=== PATIENT | male | born 1990 | race American Indian/Alaskan Native ===

== ENCOUNTER 2016-07-20 09:46 | Emergency (ER) | payer SELFPAY ==
[2016-07-20 11:34] VITALS: BP 125/77
[2016-07-20] MEDS ORDERED: TYLENOL PO ONE (12:31)
[2016-07-20] MEDS ORDERED: BACTRIM DS PO ONE (12:32)
--- NOTE | 2016-07-20 12:38 | Emergency Department Report ---
HPI - General Chief Complaint: Skin/Abscess/Foreign Body - HPI HPI: The patient is a 26 yo male presents for evaluation of toe pain. The patient reports continuous severe toe pain for the past one week, burning in quality, 10 /10 severity, exacerbated with ambulation. The patient has some to the toes, fever, drainage or discharge, paresthesias, motor deficit. ED Past Medical Hx - Social History Smoking Status: Never Smoker Substance Use Type: None - Medications Home Medications: Home Medications Medication Instructions Recorded Confirmed Last Taken Type Clindamycin [Clindamycin CAP] 600 mg PO BID #28 capsule 12/04/14 Unknown Rx Ibuprofen [Motrin 800 MG tab] 800 mg PO Q8HR PRN #30 tablet 12/06/14 Unknown Rx Doxycycline [Vibramycin CAP] 100 mg PO Q12HR #20 capsule 04/20/15 Unknown Rx Acetaminophen/Codeine [Tylenol 1 tab PO TID PRN #14 tab 07/20/16 Unknown Rx /Codeine # 3 tab] Sulfamethoxazole/Trimethoprim 1 each PO BID #10 tablet 07/20/16 Unknown Rx [Bactrim DS TAB] Terbinafine 1% [Lamisil At] 1 applicatio TP BID #2 tube 07/20/16 Unknown Rx ED Review of Systems ROS: Stated complaint: FOOT INFECTION/PAIN Other details as noted in HPI Constitutional: denies: fever ENT: denies: throat or neck pain Respiratory: denies: cough, shortness of breath Cardiovascular: denies: chest pain Endocrine: denies unexplained weight loss or gain Gastrointestinal: denies: abdominal pain, nausea Genitourinary: denies: dysuria Musculoskeletal: reports toe pain denies: leg swelling Skin: denies: rash Neurological: denies: headache Hematological/Lymphatic: denies: easy bleeding or easy bruising Psych: denies sadness or hopelessness Physical Exam - Physical Exam Vital Signs: Vital Signs 07/20/16 11:31 Temperature 97.6 F Pulse Rate 57 L Respiratory 16 Rate Blood Pressure 125/77 O2 Sat by Pulse 100 Oximetry Physical Exam: General: well-nourished, well-developed, no acute distress Head: Normocephalic, atraumatic Eyes: normal sclera ENT: Mucous membranes are pink and moist Neck: trachea midline, neck supple, No neck stiffness, no cervical adenopathy Respiratory: Breath sounds equal bilaterally, no wheezing, rales, or rhonchi Cardio: S1 and S2 present, no murmurs, rubs, gallops, capillary refill is brisk Abdomen: Normoactive bowel sounds, soft abdomen, no rigidity, no guarding or rebound tenderness Musc: Hawkeye raise malodorous whitish lesion present in between the 3-4 toes of right foot, mild surrounding erythema present, no swelling of the toes, no paronychia, felon, or other abscess, No pitting edema Skin: No rash Neuro: no facial drooping, normal speech Psych: Normal affect ED Course Vital Signs 07/20/16 11:31 Temperature 97.6 F Pulse Rate 57 L Respiratory 16 Rate Blood Pressure 125/77 O2 Sat by Pulse 100 Oximetry ED Medical Decision Making - Medical Decision Making Evaluation findings are consistent with acute tinea pedis, and probable surrounding mild cellulitis. The patient is given a tablet of Bactrim and a tablet of Tylenol for his pain. The patient is also given a Prescription for terbinafine cream. The patient was reevaluated and reported that their symptoms were markedly improved. The patient is stable for discharge with outpatient follow-up. The patient is given follow-up and return instructions. The patient expressed understanding and agreed with the plan. The patient is discharged in stable condition. Critical care attestation.: If time is entered above; I have spent that time in minutes in the direct care of this critically ill patient, excluding procedure time. ED Disposition Clinical Impression: Tinea pedis of right foot, Pain in toe of right foot, Cellulitis of toe of right foot Disposition: DC- TO HOME OR SELFCARE Is pt being admited?: No Does the pt Need Aspirin: No Condition: Stable Instructions: Tinea Pedis (ED), Terbinafine (On the skin), Antifungals (On the skin) Prescriptions: Acetaminophen/Codeine [Tylenol /Codeine # 3 tab] 1 tab PO TID PRN #14 tab PRN Reason: Breakthrough Pain Sulfamethoxazole/Trimethoprim [Bactrim DS TAB] 1 each PO BID #10 tablet Terbinafine 1% [Lamisil At] 1 applicatio TP BID #2 tube Referrals: PRIMARY CARE,MD [Primary Care Provider] - 3-5 Days Time of Disposition: 12:34
== END 2016-07-20 13:04 | disposition home or self-care (01) ==
LOC: ED 09:46
DX: B35.3 Tinea pedis (principal); L03.115 Cellulitis of right lower limb; M79.674 Pain in right toe(s); Z88.0 Allergy status to penicillin
CPT/HCPCS: 99282

== ENCOUNTER 2016-08-09 14:24 | Emergency (ER) | payer SELFPAY ==
[2016-08-09 14:56] VITALS: BP 128/79
--- NOTE | 2016-08-09 22:23 | Emergency Department Report ---
Entered by TY CRISOSTOMO, acting as scribe for HOLLEY DAWN NP. - General Chief Complaint: Wound/Laceration Stated Complaint: RT LEG/FOOT PAIN /SWOLLEN Time Seen by Provider: 08/09/16 15:00 Source: patient Mode of arrival: Ambulatory Limitations: No Limitations - History of Present Illness Initial Comments: This is a 26 y/o male that is non-toxic, non-ill appearing, and in no acute distress with no significant PMHx with c/o a wound with drainage between his right 3rd and 4th toes that began 4 weeks ago. Rates associated pain a 9/10 in severity, which he states radiates to his right foot. Patient states he was seen in this ED on 07/20/2016 for right foot pain, and was prescribed fungal medication. Patient states he finished the medications with no improvement. He states the wound is worsening. Patient denies trauma to the area. He denies numbness, tingling, chest pain, SOB, headache, stiff neck, fever, chills, nausea , and vomiting. Denies Hx of diabetes mellitus. Allergic to penicillins. Onset/Timin -: week(s) Location: other (right foot between 3rd and 4th toes) Extremity Location: Right: Foot (between 3rd and 4th toes) Place: home Associated Symptoms: pain, other (purulent drainage from wound on right foot). denies: loss of feeling/numbness, suspect foreign body present, unable to move injured part, weakness followed by dizziness, nausea/vomiting, fever - Related Data Previous Rx's Medication Instructions Recorded Last Taken Type Clindamycin [Clindamycin CAP] 600 mg PO BID #28 capsule 12/04/14 Unknown Rx Ibuprofen [Motrin 800 MG tab] 800 mg PO Q8HR PRN #30 tablet 12/06/14 Unknown Rx Doxycycline [Vibramycin CAP] 100 mg PO Q12HR #20 capsule 04/20/15 Unknown Rx Acetaminophen/Codeine [Tylenol 1 tab PO TID PRN #14 tab 07/20/16 Unknown Rx /Codeine # 3 tab] Sulfamethoxazole/Trimethoprim 1 each PO BID #10 tablet 07/20/16 Unknown Rx [Bactrim DS TAB] Terbinafine 1% [Lamisil At] 1 applicatio TP BID #2 tube 07/20/16 Unknown Rx Clindamycin [Clindamycin CAP] 450 mg PO Q8HR 7 Days 08/09/16 Unknown Rx Sulfamethoxazole/Trimethoprim 1 each PO BID 7 Days 08/09/16 Unknown Rx [Bactrim DS TAB] Allergies Allergy/AdvReac Type Severity Reaction Status Date / Time Penicillins Allergy Unknown Verified 08/09/16 14:51 ED Review of Systems ROS: Stated complaint: RT LEG/FOOT PAIN /SWOLLEN Other details as noted in HPI Comment: All other systems reviewed and negative Constitutional: denies: chills, diaphoresis, fever, weakness Eyes: denies: eye pain, eye discharge, vision change ENT: denies: ear pain, throat pain Respiratory: denies: cough, orthopnea, shortness of breath, SOB with exertion, SOB at rest, stridor, wheezing Cardiovascular: denies: chest pain, palpitations, dyspnea on exertion, orthopnea , edema, syncope, paroxysmal nocturnal dyspnea Endocrine: no symptoms reported Gastrointestinal: denies: abdominal pain, nausea, vomiting, diarrhea Genitourinary: denies: urgency, dysuria Musculoskeletal: denies: back pain, joint swelling, arthralgia Skin: other (wound with drainage between his right 3rd and 4th toes). denies: rash, lesions Neurological: denies: headache, weakness, numbness, paresthesias Psychiatric: denies: anxiety, depression Hematological/Lymphatic: denies: easy bleeding, easy bruising ED Past Medical Hx - Past Medical History Previous Medical History?: No - Surgical History Past Surgical History?: No - Social History Smoking Status: Current Every Day Smoker Substance Use Type: Alcohol, Marijuana - Medications Home Medications: Home Medications Medication Instructions Recorded Confirmed Last Taken Type Clindamycin [Clindamycin CAP] 600 mg PO BID #28 capsule 12/04/14 Unknown Rx Ibuprofen [Motrin 800 MG tab] 800 mg PO Q8HR PRN #30 tablet 12/06/14 Unknown Rx Doxycycline [Vibramycin CAP] 100 mg PO Q12HR #20 capsule 04/20/15 Unknown Rx Acetaminophen/Codeine [Tylenol 1 tab PO TID PRN #14 tab 07/20/16 Unknown Rx /Codeine # 3 tab] Sulfamethoxazole/Trimethoprim 1 each PO BID #10 tablet 07/20/16 Unknown Rx [Bactrim DS TAB] Terbinafine 1% [Lamisil At] 1 applicatio TP BID #2 tube 07/20/16 Unknown Rx Clindamycin [Clindamycin CAP] 450 mg PO Q8HR 7 Days 08/09/16 Unknown Rx Sulfamethoxazole/Trimethoprim 1 each PO BID 7 Days 08/09/16 Unknown Rx [Bactrim DS TAB] ED Physical Exam - General Limitations: No Limitations General appearance: alert, in no apparent distress - Head Head exam: Present: atraumatic, normocephalic - Eye Eye exam: Present: normal appearance, PERRL, EOMI Pupils: Present: normal accommodation - ENT ENT exam: Present: normal exam, normal orophraynx, mucous membranes moist, TM's normal bilaterally, normal external ear exam - Neck Neck exam: Present: normal inspection, full ROM. Absent: tenderness, meningismus, lymphadenopathy - Respiratory Respiratory exam: Present: normal lung sounds bilaterally. Absent: respiratory distress, wheezes, rales, rhonchi, stridor - Cardiovascular Cardiovascular Exam: Present: regular rate, normal rhythm, normal heart sounds. Absent: systolic murmur, diastolic murmur, rubs, gallop - GI/Abdominal GI/Abdominal exam: Present: soft, normal bowel sounds. Absent: distended - Rectal Rectal exam: Present: deferred - Extremities Exam Extremities exam: Present: full ROM, tenderness, normal capillary refill. Absent: pedal edema, joint swelling, calf tenderness - Expanded Lower Extremity Exam Right Hip exam: Present: normal inspection, full ROM Upper Leg exam: Present: normal inspection, full ROM Knee exam: Present: normal inspection, full ROM Lower Leg exam: Present: normal inspection, full ROM Ankle exam: Present: normal inspection, full ROM Foot/Toe exam: Present: full ROM, tenderness (slight tenderness between 3rd and 4th toe), puncture wound (non-erythematous closed wound with pus and drainage between his right 3rd and 4th toes). Absent: swelling, abrasion, laceration, ecchymosis, deformity, crepidus, dislocation, erythema, amputation, foreign body , calcaneal tenderness, tenderness at base of 5th metatarsal, nail avulsion, subungual hematoma Neuro vascular tendon exam: Present: no vascular compromise. Absent: pulse deficit, abnormal cap refill, motor deficit, sensory deficit, tendon deficit, extremity cold to touch, pallor, abnormal 2-point discrimination, decreased fine /light touch, foot drop, peroneal nerve deficit, significant pain with passive ROM of distal joint Gait: Positive: observed and normal 1 - closed wound purulent drainage - Back Exam Back exam: Present: normal inspection, full ROM. Absent: tenderness, CVA tenderness (R), CVA tenderness (L), muscle spasm, paraspinal tenderness, vertebral tenderness - Neurological Exam Neurological exam: Present: alert, oriented X3, reflexes normal. Absent: motor sensory deficit - Psychiatric Psychiatric exam: Present: normal affect, normal mood - Skin Skin exam: Present: warm, dry. Absent: rash - Other Other exam information: Normal ROM. No swelling. No joint tendnerss. No joint pain. No joint swelling. ED Course Vital Signs 08/09/16 14:52 Temperature 97.3 F L Pulse Rate 70 Respiratory 17 Rate Blood Pressure 128/79 O2 Sat by Pulse 100 Oximetry ED Medical Decision Making - Medical Decision Making Ed course: This is a 26-year-old male that presents with pus and drainage between 3rd/4th toe 1-after my physical exam, patient received Clinda and bactrim at d/c. 2- pt was instrcuted to f/u with a primary care doctor in 3-5 days or if symptoms worsen such as increased pus, drainage, joint swelling, joint pain, numbness, tingling, fever or chills return back to emergency room as soon as possible 3- at time time of discharge, the patient does not seem toxic or ill in appearance. No acute signs of distress noted. Patient agrees to discharge treatment plan of care. No further questions noted by the patient. Critical care attestation.: If time is entered above; I have spent that time in minutes in the direct care of this critically ill patient, excluding procedure time. ED Disposition Clinical Impression: Purulent inflammation of skin Disposition: TO HOME OR SELFCARE Is pt being admited?: No Does the pt Need Aspirin: No Condition: Stable Instructions: Sulfamethoxazole/Trimethoprim (By mouth), Clindamycin (By mouth) , Wound Infection (ED), Acute Wound Care (ED) Additional Instructions: follow-up with a primary care doctor in 3-5 days or if symptoms worsen such as increased pus, drainage, joint swelling, joint pain, numbness, tingling, fever or chills return back to emergency room as soon as possible Take full course of antibiotics as prescribed. Prescriptions: Clindamycin [Clindamycin CAP] 450 mg PO Q8HR 7 Days Sulfamethoxazole/Trimethoprim [Bactrim DS TAB] 1 each PO BID 7 Days Referrals: PRIMARY CAREMD [Primary Care Provider] - 3-5 Days NURYS GUTIERREZ JR, MD [Staff Physician] - 3-5 Days [facility] [Outside] - 3-5 Days [facility] [place] [Outside] - 3-5 Days Forms: Work/School Release Form(ED) This documentation as recorded by the ANDRESSA garay JASMINE,accurately reflects the service I personally performed and the decisions made by ,HOLLEY DAWN, JAMIN.
== END 2016-08-09 16:47 | disposition home or self-care (01) ==
LOC: ED 14:24
DX: L08.89 Other specified local infections of the skin and subcutaneous tissue (principal); S91.301D Unspecified open wound, right foot, subsequent encounter; F17.200 Nicotine dependence, unspecified, uncomplicated; Z88.0 Allergy status to penicillin; F12.10 Cannabis abuse, uncomplicated
CPT/HCPCS: 99282

== ENCOUNTER 2016-09-28 19:06 | Emergency (ER) | payer SELFPAY ==
[2016-09-28 20:39] LABS: Hematocrit 41.1 % (35.5-45.6); Hemoglobin 13.9 gm/dl (11.8-15.2); Mean Corpuscular HGB Conc 34 % (32-34); Mean Corpuscular Hemoglobin 29 pg (28-32); Mean Corpuscular Volume 87 fl (84-94); Platelet Count 122 K/mm3 (140-440); Red Blood Count 4.74 M/mm3 (3.65-5.03); Red Cell Distribution Width 13.7 % (13.2-15.2); White Blood Count 6.2 K/mm3 (4.5-11.0)
[2016-09-28 20:57] LABS: Anion Gap 18 mmol/L; BUN/Creatinine Ratio 7.77; Blood Urea Nitrogen 7 mg/dL (9-20); Calcium 8.7 mg/dL (8.4-10.2); Carbon Dioxide 26 mmol/L (22-30); Chloride 101.5 mmol/L (98-107); Glucose 83 mg/dL (75-100); Potassium 3.2 mmol/L (3.6-5.0); Sodium 142 mmol/L (137-145)
[2016-09-28 22:47] VITALS: BP 145/87
[2016-09-28] MEDS ORDERED: K-DUR PO ONE (23:39)
[2016-09-28] MEDS ORDERED: TORADOL IM ONE (23:39)
--- NOTE | 2016-09-28 23:43 | Emergency Department Report ---
ED General Adult HPI - General Chief complaint: Wound/Laceration Stated complaint: INFECTED TOE Source: patient, RN notes reviewed, old records reviewed Mode of arrival: Ambulatory Limitations: No Limitations - History of Present Illness Initial comments: This is a 26-year-old male. He is previously unknown to me. The patient presents to the ER with 1 month of skin breakdown on the right foot, between the third and fourth toes, and discharge. No fevers or chills, chest pain or shortness of breath, no streaking. Patient seen in this department previously for similar symptoms, initially diagnosed with tinea pedis, and mild superimposed cellulitis, discharged with topical antifungal and oral antibiotics , and returned a few weeks later and was diagnosed with presumed cellulitis, the discharged with clindamycin and Bactrim. -: Gradual Location: right, lower extremity Severity scale (0 -10): 0 Quality: aching Consistency: constant Improves with: rest Worsens with: movement Associated Symptoms: denies other symptoms - Related Data Previous Rx's Medication Instructions Recorded Last Taken Type Clindamycin [Clindamycin CAP] 600 mg PO BID #28 capsule 12/04/14 Unknown Rx Doxycycline [Vibramycin CAP] 100 mg PO Q12HR #20 capsule 04/20/15 Unknown Rx Acetaminophen/Codeine [Tylenol 1 tab PO TID PRN #14 tab 07/20/16 Unknown Rx /Codeine # 3 tab] Sulfamethoxazole/Trimethoprim 1 each PO BID #10 tablet 07/20/16 Unknown Rx [Bactrim DS TAB] Clindamycin [Clindamycin CAP] 450 mg PO Q8HR 7 Days 08/09/16 Unknown Rx Sulfamethoxazole/Trimethoprim 1 each PO BID 7 Days 08/09/16 Unknown Rx [Bactrim DS TAB] Ibuprofen [Motrin 800 MG tab] 800 mg PO Q8HR PRN #30 tablet 09/28/16 Unknown Rx Terbinafine 1% [Lamisil At] 1 applicatio TP BID #2 tube 09/28/16 Unknown Rx Allergies Allergy/AdvReac Type Severity Reaction Status Date / Time Penicillins Allergy Unknown Verified 08/09/16 14:51 ED Review of Systems ROS: Stated complaint: INFECTED TOE Other details as noted in HPI Constitutional: denies: malaise Eyes: denies: vision change ENT: denies: epistaxis Respiratory: denies: cough Cardiovascular: denies: chest pain Gastrointestinal: denies: abdominal pain Musculoskeletal: arthralgia, myalgia Skin: rash, lesions Neurological: headache. denies: weakness ED Past Medical Hx - Past Medical History Previous Medical History?: No - Social History Smoking Status: Current Every Day Smoker Substance Use Type: Alcohol - Medications Home Medications: Home Medications Medication Instructions Recorded Confirmed Last Taken Type Clindamycin [Clindamycin CAP] 600 mg PO BID #28 capsule 12/04/14 Unknown Rx Doxycycline [Vibramycin CAP] 100 mg PO Q12HR #20 capsule 04/20/15 Unknown Rx Acetaminophen/Codeine [Tylenol 1 tab PO TID PRN #14 tab 07/20/16 Unknown Rx /Codeine # 3 tab] Sulfamethoxazole/Trimethoprim 1 each PO BID #10 tablet 07/20/16 Unknown Rx [Bactrim DS TAB] Clindamycin [Clindamycin CAP] 450 mg PO Q8HR 7 Days 08/09/16 Unknown Rx Sulfamethoxazole/Trimethoprim 1 each PO BID 7 Days 08/09/16 Unknown Rx [Bactrim DS TAB] Ibuprofen [Motrin 800 MG tab] 800 mg PO Q8HR PRN #30 tablet 09/28/16 Unknown Rx Terbinafine 1% [Lamisil At] 1 applicatio TP BID #2 tube 09/28/16 Unknown Rx ED Physical Exam - General Limitations: No Limitations General appearance: alert, in no apparent distress - Head Head exam: Present: atraumatic, normocephalic - Eye Eye exam: Present: normal appearance, PERRL, EOMI. Absent: nystagmus - ENT ENT exam: Present: normal exam, normal orophraynx, mucous membranes moist, normal external ear exam - Neck Neck exam: Present: normal inspection, full ROM. Absent: tenderness, meningismus - Respiratory Respiratory exam: Present: normal lung sounds bilaterally. Absent: respiratory distress, wheezes, rales, rhonchi, stridor, chest wall tenderness - Cardiovascular Cardiovascular Exam: Present: regular rate, normal rhythm, normal heart sounds. Absent: bradycardia, tachycardia, irregular rhythm, systolic murmur, diastolic murmur, rubs, gallop - GI/Abdominal GI/Abdominal exam: Present: soft, normal bowel sounds. Absent: distended, tenderness, guarding, rebound - Rectal Rectal exam: Present: deferred - Extremities Exam Extremities exam: Present: full ROM, tenderness, normal capillary refill, other (2+ pulses are noted in the bilateral upper and lower extremities. The compartments are soft. On the right foot, between the third and fourth toe, there is an area of skin maceration and ulceration. Fungal discharge is noted. There is no redness, pus or streaking. Skin breakdown is noted.). Absent: pedal edema, joint swelling, calf tenderness - Back Exam Back exam: Present: normal inspection - Neurological Exam Neurological exam: Present: alert, oriented X3, normal gait, other (Extraocular movements intact. Tongue midline. No facial droop. Facial sensation intact to light touch in the V1, V2, V3 distribution bilaterally. 5 and 5 strength in 4 extremities.. Sensation is intact to light touch in 4 extremities.). Absent : motor sensory deficit - Psychiatric Psychiatric exam: Present: normal affect, normal mood - Skin Skin exam: Present: rash ED Course Vital Signs 09/28/16 09/28/16 20:13 22:46 Temperature 98.6 F 98.5 F Pulse Rate 96 H 54 L Respiratory 18 16 Rate Blood Pressure 137/88 Blood Pressure 145/87 [Left] O2 Sat by Pulse 100 100 Oximetry ED Medical Decision Making - Lab Data Result diagrams: 09/28/16 20:25 09/28/16 20:25 Vital Signs 09/28/16 09/28/16 20:13 22:46 Temperature 98.6 F 98.5 F Pulse Rate 96 H 54 L Respiratory 18 16 Rate Blood Pressure 137/88 Blood Pressure 145/87 [Left] O2 Sat by Pulse 100 100 Oximetry Lab Results 09/28/16 09/28/16 Range/Units 20:25 20:25 WBC 6.2 (4.5-11.0) K/mm3 RBC 4.74 (3.65-5.03) M/mm3 Hgb 13.9 (11.8-15.2) gm/dl Hct 41.1 (35.5-45.6) % MCV 87 (84-94) fl MCH 29 (28-32) pg MCHC 34 (32-34) % RDW 13.7 (13.2-15.2) % Plt Count 122 L (140-440) K/mm3 Sodium 142 (137-145) mmol/L Potassium 3.2 L (3.6-5.0) mmol/L Chloride 101.5 (98-107) mmol/L Carbon Dioxide 26 (22-30) mmol/L Anion Gap 18 mmol/L BUN 7 L (9-20) mg/dL Creatinine 0.9 (0.8-1.5) mg/dL Estimated GFR > 60 ml/min BUN/Creatinine Ratio 7.77 % Glucose 83 (75-100) mg/dL Calcium 8.7 (8.4-10.2) mg/dL - Medical Decision Making Differential diagnosis: Fungal infection, skin maceration, skin breakdown Assessment and plan: 26-year-old male with approximately 1 month complaint of skin maceration and breakdown. Appears to be a fungal component, and mechanical /possible chemical component. Clinically does not appear to have her superinfected cellulitis at this time. The importance of proper foot hygiene was discussed with the patient. He is instructed to keep the foot dry, to air it out at least once per hour, and while at work, keep the foot dry and aired out. He will be discharged with topical antifungal medications. He understands that this process will likely take a few weeks to a few months to fully heal and resolve. He also needs to follow up with outpatient wound care center. The patient is reliable for this plan of care, and he will be discharged. Critical care attestation.: If time is entered above; I have spent that time in minutes in the direct care of this critically ill patient, excluding procedure time. ED Disposition Clinical Impression: Unspecified open wound, right foot, sequela Disposition: DC-01 TO HOME OR SELFCARE Is pt being admited?: No Does the pt Need Aspirin: No Condition: Stable Instructions: Tinea Versicolor (ED) Additional Instructions: Take medications as directed. Keep the foot dry, uncover once an hour, and follow-up with the outpatient wound center within the next 7 days, and follow- up with an outpatient packaging materials inspector within the next 7-10 days. This skin lesion will take weeks to months to heal. Take the pain medication as directed. Apply the antifungal cream as directed. Return to the ER right away with fevers , chills, chest pain, shortness of breath, nausea, vomiting, streaking, inability to tolerate liquid feeds. Prescriptions: Ibuprofen [Motrin 800 MG tab] 800 mg PO Q8HR PRN #30 tablet PRN Reason: Pain Terbinafine 1% [Lamisil At] 1 applicatio TP BID #2 tube Referrals: PRIMARY CARE, [Primary Care Provider] - 3-5 Days TRENT SANDOVAL DPM [Referring] - 3-5 Days JUVENTINO WATTS DPM [Referring] - 3-5 Days LOUANN CHERY DPM [Referring] - 3-5 Days AMADOR BLOCK DPM [Referring] - 3-5 Days HARDEEP VALENZUELA DPM [Staff Physician] - 3-5 Days SAROJ COLLINS DPM [Referring] - 3-5 Days SHAN GIBBONS DPM [Referring] - 3-5 Days CARTER AMIN DPM [Referring] - 3-5 Days ARISTIDES ABDUL DPM [Referring] - 3-5 Days [facility] [Outside] - 3-5 Days Forms: Work/School Release Form(ED)
== END 2016-09-29 00:10 | disposition home or self-care (01) ==
LOC: ED 19:06
DX: S91.301D Unspecified open wound, right foot, subsequent encounter (principal); F17.200 Nicotine dependence, unspecified, uncomplicated; Z88.0 Allergy status to penicillin; X58.XXXD Exposure to other specified factors, subsequent encounter
CPT/HCPCS: 36415; 80048; 85027; 96372; 99283; J1885